=== PATIENT | female | born 1975 | race Caucasian/White ===

== ENCOUNTER 2016-11-05 10:24 | Emergency (ER) | payer OTHER, SELFPAY ==
[2016-11-05 11:44] LABS: #Basophils 0.1 thou/uL (0.0-0.2); #Eosinphils 0.3 thou/uL (0.0-0.7); #Lymphocytes 0.8 thou/uL (1.20-3.40); #Monocytes 0.4 thou/uL (0.11-0.59); #Neutrophils 8.1 thou/uL (1.40-6.50); %Basophils 0.8 % (0.0-1.0); %Eosinophils 2.7 % (0.0-10.0); %Lymphocytes 8.7 % (21.0-51.0); %Monocytes 4.3 % (0.0-10.0); %Neutrophils 83.6 % (42.0-75.0); Hemoglobin 14.7 g/dL (12.0-16.0); Mean Corpuscular HGB CONC 33.8 g/dL (32.0-36.0); Mean Corpuscular Hemoglobin 31.6 pg (27.0-31.0); Mean Corpuscular Volume 93.5 fl (81.0-99.0); Mean Platelet Volume 9.5 fL (7.4-10.4); Platelet Count 181 thou/uL (130-400); RBC Distribution Width 12.5 % (11.5-14.5); Red Blood Cell (RBC) Count 4.64 mill/uL (4.20-5.40); White Blood Cell (WBC) Count 9.7 thou/uL (4.8-10.8)
[2016-11-05 12:01] LABS: ALT (SGPT) 27 U/L (0-55); AST (SGOT) 18 U/L (5-34); Albumin 3.8 g/dL (3.5-5.0); Alkaline Phosphatase 83 U/L (40-150); Anion Gap 13 mmol/L (10-20); BUN (Urea Nitrogen) 11 mg/dL (7.0-18.7); Bilirubin, Total 0.3 mg/dL (0.2-1.2); Calc. Creatinine Clearance 0 mL/min (70-130); Calcium 8.6 mg/dL (7.8-10.44); Carbon Dioxide 22 mmol/L (22-29); Chloride 110 mmol/L (98-107); Estimated GFR-MDRD 82; Globulin 2.5 g/dL (2.4-3.5); Glucose 117 mg/dL (70-105); Potassium 4.3 mmol/L (3.5-5.1); Protein, Total 6.3 g/dL (6.0-8.3); Sodium 141 mmol/L (136-145)
[2016-11-05 12:04] LABS: Bilirubin Negative (Negative); Blood, Urine Moderate (Negative); Glucose, Urine (Dipstick) Negative (Negative); Leukocyte Negative (Negative); Nitrite Negative (Negative); Protein, Urine (Dipstick) Negative (Neg-Trace); Specific Gravity, Urine 1.015 (1.005-1.030); Urobilinogen 0.2 mg/dL (0.2-1.0)
[2016-11-05 12:28] LABS: Bacteria/HPF Rare-Few HPF (None Seen); Clarity Hazy (Clear); WBC/HPF None Seen HPF (0-3)
[2016-11-05 12:29] LABS: Pregu Control Bar Appear? YES (CONTROL BAR); Specific Gravity 1.015 (1.002-1.036)
[2016-11-05] MEDS ORDERED: Tamsulosin HCl 0.4 MG CAP ONE (13:08)
--- NOTE | 2016-11-05 13:12 | CT ---
CT ABDOMEN AND PELVIS WITHOUT CONTRAST: Date: 11/05/16 TECHNIQUE: Multiple axial tomograms obtained through the abdomen and pelvis without IV enhancement. HISTORY: Left flank pain. FINDINGS: Lung bases clear. Liver, spleen, and pancreas are unremarkable. Patient is post cholecystectomy. Adrenal glands appear unremarkable. There is mild left hydronephrosis. There is columning of the left ureter. There is a 3.0 mm calculus in the distal left ureter just proximal to the UVJ. No other urinary tract calculus identified. Bowel loops appear normal. Appendix is normal. No adenopathy seen. The uterus and adnexa appear unre markable. IMPRESSION: 3-4 mm calculus distal left ureter producing mild obstructive change. POS: [facility]
== END 2016-11-05 13:15 | disposition home or self-care (01) ==
LOC: MADERS 10:24
DX: N13.2 Hydronephrosis with renal and ureteral calculous obstruction (principal); F17.210 Nicotine dependence, cigarettes, uncomplicated; Z79.899 Other long term (current) drug therapy
CPT/HCPCS: 36415; 74176; 80053; 81003; 81015; 81025; 85025